=== PATIENT | female | born 1995 | race Caucasian/White ===

== ENCOUNTER 2018-07-03 08:50 | Outpatient (CLI) | payer BC ==
[2018-07-03 09:14] VITALS: BP 116/68; PULSE 91; RESP 16; TEMP 97
[2018-07-03 10:02] LABS: Appearance,Urine Clear (Clear); Bacteria,Urine Rare /hpf; Bilirubin,Urine Negative (Negative); Blood,Urine Negative (Negative); Color,Urine Yellow; Glucose,Urine (UA) 1+ (Negative); Ketones,Urine Negative (Negative); Leukocyte Esterase,Urine Large (Negative); Nitrite,Urine Negative (Negative); PH, Urine 6.5 (5.0-8.0); Protein,Urine Negative (Negative); RBC,Urine <1 /hpf (0-5); Specific Gravity,Urine 1.011 (1.001-1.035); Squamous Epithelial Cell,Urine 5 /hpf (0-4); Urobilinogen,Urine <2.0 mg/dL (<2.0); WBC,Urine 1 /hpf (0-5)
--- NOTE | 2018-07-07 09:57 | P.MSEPDOC ---
Presenting Problems - Arrival Data Date of Arrival on Unit: 07/03/18 Time of Arrival on Unit: 08:48 Mode of Transport: Ambulatory - Complaint OB-Reason for Admission/Chief Complaint: Rule Out PROM Comment: Patient states she had one gush of unknown fluid last night and then another this am. States with her last baby this happened and she didn't know she was ruptured so she wanted to come in and get checked out. Medical History - Information : 2 Para: 1 Term: 0 : 1 Abortions: Spontaneous or Elective: 0 Number of Living Children: 1 - Gestational Age Gestational Age by MEGA (wks/days): 28 Weeks and 6 Days Review of Systems - Review of Systems Constitutional: No problems Breast: No problems ENT: No problems Cardiovascular: No problems Respiratory: No problems Gastrointestinal: No problems Genitourinary: No problems Musculoskeletal: No problems Neurological: No problems Skin: No problems Vital Signs - Temperature Temperature: 97.0 F Temperature Source: Temporal Artery Scan - Pulse Right Radial Pulse Rate: 91 Pulse Assessment Method: Automatic Cuff - Respirations Respiratory Rate: 16 Oxygen Delivery Method: Room Air - Blood Pressure Right Arm Blood Pressure: 116/68 Blood Pressure Mean: 84 Blood Pressure Source: Automatic Cuff Medical Screen Scoring (Pre) - Cervical Exam Dilation: Exam Deferred Effacement: Exam Deferred Membranes: Intact - Uterine Contractions Frequency: N/A Duration: N/A Intensity: N/A - Maternal Vital Signs Maternal Temperature: N/A Maternal Blood Pressure: N/A Signs of Preeclampsia: N/A Maternal Respirations: N/A - Pain Assessment Pain Scale Used: Numeric (1 - 10) Pain Intensity: 0 - Maternal Trauma Maternal Trauma: N/A - Assessment Baseline FHR: 135 Heart Rate - NICHD Category: Category I (Normal) = 0 NST: Reactive Position: N/A Station: N/A - Total Score Total Score (Pre): 0 - Level of Risk Level of Risk: Low (0-5) Physician Notification (Pre) - Physician Notified Physician Notified Date: 07/03/18 Physician Notified Time: 09:34 Physician/Practitioner Notifed:: Dr. Rondon New Order Received: Yes - Notification Comment Comment: Collect and send an UA and call physician with report. at 1023 physician called with UA results, orders urine culture at this time, okay to discharge patient home at this time with instructions. Disposition - Disposition OB Disposition: Discharge to home Discharge Date: 07/03/18 Discharge Time: 10:25 I agree with the RN Medical Screening Exam: Yes Risk & Benefit of care provided described in d/c instruction: Yes Diagnosis: RELATED CONDITIONS, UNSPECIFIED, THIRD TRIMESTER
== END 2018-07-03 10:25 | disposition home or self-care (01) ==
LOC: FBPOP 08:50
PROVIDERS: ATTEND Obstetrics & Gynecology
DX: O26.93 Pregnancy related conditions, unspecified, third trimester (principal); Z3A.28 28 weeks gestation of pregnancy
CPT/HCPCS: 59025; 81001; 84112; 87086; 99213

== ENCOUNTER 2018-09-17 00:03 | Inpatient (IN) | payer BC ==
[2018-09-17] MEDS ORDERED: OXYTOCIN 10 UNIT/ML 1 ML VIAL IM PRN (02:49)
[2018-09-17] MEDS ORDERED: CARBOPROST TROMETHAMINE 250 MCG/ML 1 ML AMP IM PRN (02:49)
[2018-09-17] MEDS ORDERED: METHYLERGONOVINE 0.2 MG/ML 1 ML AMP IM PRN (02:49)
[2018-09-17] MEDS ORDERED: LIDOCAINE 0.5% (PF) 5 MG/ML (50 ML SDV) SQ PRN (02:49)
[2018-09-17] MEDS ORDERED: TERBUTALINE 1 MG/ML VIAL SQ PRN (02:49)
[2018-09-17 03:16] VITALS: BMI 25.4
[2018-09-17] MEDS: LACTATED RINGERS 1,000 ML IV SCH ×3 (03:26→23:28)
[2018-09-17 03:33] LABS: Basophils # (A) 0.1 k/uL (0-0.2); Basophils % (A) 1 %; Eosinophils # (A) 0.1 k/uL (0-0.7); Eosinophils % (A) 1 %; HCT 37.1 % (34.0-46.0); Lymphocytes # (A) 1.7 k/uL (1.0-4.8); Lymphocytes % (A) 17 %; MCH 26.7 pg (25.0-35.0); MCHC 32.4 g/dL (31.0-37.0); MCV 82.4 fL (80.0-100.0); Mean Platelet Volume 8.5; Monocytes # (A) 0.3 k/uL (0-1.0); Monocytes % (A) 3 %; Neutrophils # (A) 7.5 k/uL (1.3-7.7); Neutrophils % (A) 76 %; Platelet Count 273 k/uL (150-450); RBC 4.51 m/uL (3.80-5.40); RDW 15.7 % (11.5-15.5); WBC 9.9 k/uL (3.8-10.6)
[2018-09-17] MEDS ORDERED: OXYTOCIN 30 UNITS/500 ML NS 30 UNIT in SALINE 1 500ML.BAG IV SCH (06:30)
--- NOTE | 2018-09-17 10:07 | P.HPOB ---
History of Present Illness H&P Date: 09/17/18 Chief Complaint: Uterine contractions, decreased movement This is a 23-year-old white female 2 per 1001 EDC 09/19/2018 at 39-5/7 weeks' gestation. Patient presented early this morning with complaint of uterine contractions and decreased movement. She denied fluid leakage or vaginal bleeding. The diagnosis of early labor was made and the patient was a dmitted. Reactive NST was also appreciated. Obstetric history is significant for suspected LGA, 93rd percentile. Polyhydramnios, weekly nonstress test reactive. Blood type A-, antibody screen negative. Rubella status immune. Urine culture, hepatitis B surface antigen, gonorrhea and chlamydia cultures, HIV testing, group B strep cultures all negative. One-hour Glucola 107. Social history is significant for patient being single, she works at a [employer], she has never been a smoker and denies alcohol or drug use. Past surgical history wisdom teeth extracted in the past. Past medical history significant for abnormal Pap smear, history of chlamydia in the past. ALLERGIES none known. Current medications vitamins daily. Family history significant for diabetes mellitus. On exam this is a pleasant white female, 5 foot 2 inches, 139 pounds, blood pressure 113/66. Vital signs are stable and she is afebrile. General physical exam is within normal limits. Cervix at time of this dictation is 7-8 cm dilated, 90% effaced, -1 to -2 station, vertex presentation. Artificial amniorrhexis reveals clear fluid. heart rate in the 140s with frequent accelerations, consistent with reactive NST. Impression: 39-5/7 weeks intrauterine , history of LGA and polyhy dramnios, in labor. Plan: Continue close maternal and surveillance. Epidural has been reques roxanna and anesthesia department is aware and on route. Anticipate normal spontaneous vaginal delivery. Review of Systems Constitutional: Reports as per HPI Past Medical History Past Medical History: No Reported History History of Any Multi-Drug Resistant Organisms: None Reported Additional Past Surgical History / Comment(s): WISDOM TEETH 2013 Past Anesthesia/Blood Transfusion Reactions: No Reported Reaction Past Psychological History: No Psychological Hx Reported Smoking Status: Never smoker Past Alcohol Use History: None Reported Past Drug Use History: None Reported - Past Family History Mother Family Medical History: No Reported History Medications and Allergies Home Medications Medication Instructions Recorded Confirmed Type Pnv,Calcium 72/Iron/Folic Acid 1 tab PO DAILY 07/03/18 09/17/18 History [ Plus Tablet] Allergies Allergy/AdvReac Type Severity Reaction Status Date / Time No Known Allergies Allergy Verified 09/17/18 00:17 Exam Vital Signs Temp Pulse Resp BP Pulse Ox 09/17/18 02:49 97.8 F 83 16 113/66 98 09/17/18 00:18 97.8 F 83 16 113/66 98 Intake and Output 09/16/18 09/17/18 09/17/18 22:59 06:59 14:59 Other: # Voids 3 Weight 63.231 kg See dictation under HPI please Results Result Diagrams: 09/17/18 03:20 Abnormal Lab Results - Last 24 Hours (Table) 09/17/18 Range/Units 03:20 RDW 15.7 H (11.5-15.5) % Assessment and Plan Assessment: 39-5/7 weeks intrauterine , active labor. History of LGA and polyhydramnios. All signs otherwise reassuring. Plan: Epidural has been requested, anesthesia team on route. Continue close maternal and surveillance. Anticipate normal spontaneous vaginal delivery. Time with Patient: Less than 30
[2018-09-17] MEDS ORDERED: BENZOCAINE/MENTHOL SPRAY 1 GM/SPRAY AEROSOL TOPICAL PRN (10:42)
[2018-09-17] MEDS ORDERED: LANOLIN CREAM 5 GM TUBE TOPICAL PRN (10:42)
[2018-09-17] MEDS ORDERED: diphenhydrAMINE 25 MG CAP PO PRN (10:42)
[2018-09-17] MEDS ORDERED: HYDROCORTISONE 2.5% RECTAL CREAM 30 GM TUBE RECTAL PRN (10:42)
[2018-09-17] MEDS ORDERED: IBUPROFEN 600 MG TAB PO PRN (10:42)
[2018-09-17] MEDS ORDERED: WITCH HAZEL 1 EACH MED..PAD TOPICAL PRN (10:42)
[2018-09-17] MEDS ORDERED: diphenhydrAMINE 50 MG CAP PO PRN (10:42)
[2018-09-17] MEDS ORDERED: diphenhydrAMINE 50 MG/ML 1 ML VIAL IVP PRN ×2 (10:42)
[2018-09-17] MEDS ORDERED: ACETAMINOPHEN TAB 325 MG TAB PO PRN (10:42)
[2018-09-17] MEDS ORDERED: SIMETHICONE 80 MG CHEWABLE PO PRN (10:42)
[2018-09-17] MEDS ORDERED: ZOLPIDEM 5 MG TAB PO PRN (10:42)
--- NOTE | 2018-09-17 10:42 | P.PROBDLV ---
Vaginal Delivery Note - . Vaginal Delivery Note: This is a 23-year-old white female 2 para 1001 EDC 09/19/2018 at 39-5/7 weeks' gestation. Patient presented in active spontaneous labor from home. remarkable for blood type A-, rubella status immune, group B strep cultures negative. Please see admitting history and physical for details. Artificial amniorrhexis revealed clear fluid. Patient requested epidural, but was unable to achieve 1 secondary to rapid course of dilatation. She was judged to be completely dilated at 1010 hrs. and had a strong urge to push. heart tones were reassuring throughout the first and second stages. Perineal body was prepped and draped in usual sterile fashion. With excellent maternal expulsive efforts the head delivered occiput anterior and restituted accordingly. There was no nuchal cord noted. The oropharynx, nasopharynx, and external nares were all bulb suctioned on the perineal body. Patient was officially delivered a liveborn female infant at 1014 hrs. Umbilical cord was doubly clamped and ligated, she was handed to waiting nurses for evaluation where scores of 8 and 9 at one and 5 minutes respectively were given. Placenta delivered spontaneously, it was inspected and noted to be intact with trivascular cord at 1018 hours. Perineal body was then redraped. Uterus was massaged. Inspection of the cervix, vagina, perineum, periurethral, and perirectal areas revealed no lacerations and no defects. Fundus is firm and in the midline, symmetric and 18 week size upon completion of delivery. All sponge needle and instrument counts are correct. weight 8 lbs. 11 oz. or 3945 g. Patient and her are allowed to begin the bonding experience in the LDR.
[2018-09-17] MEDS ORDERED: OXYTOCIN 20 UNITS/1000 ML NS 1,000 ML IV SCH (10:45)
[2018-09-17] MEDS ORDERED: Rhogam IMMUNE GLOBULIN 1,500 UNIT/1 ML IM ONE (21:12)
[2018-09-17 23:26] VITALS: RESP 16
[2018-09-17] MEDS: SENNOSIDES-DOCUSATE SODIUM 1 EACH TAB PO SCH (23:28)
--- NOTE | 2018-09-18 09:00 | P.DS ---
Providers Date of admission: 09/17/18 01:56 Expected date of discharge: 09/18/18 Attending physician: German Rondon Primary care physician: Stated None - Discharge Diagnosis(es) (1) Normal spontaneous vaginal delivery Current Visit: Yes Status: Acute Hospital Course: The patient is a 23-year-old 2 para 1001 admitted at 39-5/7 weeks. She is admitted in early active labor with all signs reassuring. Her was uncomplicated though she did have mild polyhydramnios as well as suspected macrosomia with growth at the 93rd percentile in the third trimester. Group B strep status was negative. On labor and delivery, she had artificial rupture of membranes carried out demonstrating clear fluid and then made fairly rapid progress through the active phase of labor to complete. She pushed quickly to a normal spontaneous vaginal delivery of a viable 8 lbs. 11 oz. baby girl with Apgars of 8 at 1 minute and 9 at 5 minutes. Her course was unremarkable with vital signs remaining stable and her temperature was afebrile throughout. She was deemed stable for discharge on day #1 was discharged home to follow-up in the office in 6 weeks' time routinely. Discharge instructions included calling for any significantly increased bleeding or foul-smelling lochia, significantly increased fever abdominal pain, perineal complaints, breast complaints, or anything else that concerned her. She was additionally instructed to have nothing in the vagina for at least 6 weeks time to include intercourse. She understood her instructions and agrees to follow up as noted above. Discharge medications included continued vitamins as she has opted to breast-feed. She otherwise was to use [id number] a nalgesic pain medications as needed. Maternal blood type is A- and cord blood was sent for the evaluation for the necessity of RhoGAM prior to discharge. Rubella status is immune. Procedures: #1. Artificial rupture of membranes #2. Normal spontaneous vaginal delivery Patient Condition at Discharge: Good Plan - Discharge Summary New Discharge Prescriptions: No Action Pnv,Calcium 72/Iron/Folic Acid [ Plus Tablet] 1 tab PO DAILY Discharge Medication List Pnv,Calcium 72/Iron/Folic Acid [ Plus Tablet] 1 tab PO DAILY 07/03/18 [History] Follow up Appointment(s)/Referral(s): German Rondon MD [STAFF PHYSICIAN] - 6 Weeks Discharge Disposition: HOME SELF-CARE
[2018-09-18] MEDS: SENNOSIDES-DOCUSATE SODIUM 1 EACH TAB PO SCH (09:06)
[2018-09-18 09:21] VITALS: BP 107/72; PULSE 88; TEMP 97.7
== END 2018-09-18 12:15 | disposition home or self-care (01) | DRG 807 ==
LOC: FBPOP 00:03 → 4FBP 01:56
PROVIDERS: ADMIT Obstetrics & Gynecology; ATTEND Obstetrics & Gynecology
PROC: 10907ZC Drainage of Amniotic Fluid, Therapeutic from Products of Conception, Via Natural or Artificial Opening (ICD-10-PCS; principal; 2018-09-17)
PROC: 10E0XZZ Delivery of Products of Conception, External Approach (ICD-10-PCS; principal; 2018-09-17)
DX: O80 Encounter for full-term uncomplicated delivery (principal); Z37.0 Single live birth; Z3A.39 39 weeks gestation of pregnancy; Z83.3 Family history of diabetes mellitus; Z86.19 Personal history of other infectious and parasitic diseases
CPT/HCPCS: 59025; 85025; 85461; 86850; 86870; 86880; 86900; 86901; 86902; 99213

== ENCOUNTER 2019-12-22 08:16 | Emergency (ER) | payer BC, OTHER ==
[2019-12-22 08:37] VITALS: RESP 18; TEMP 98.6
[2019-12-22] MEDS ORDERED: SODIUM CHLORIDE 0.9% 1,000 ML IV ONE (08:39)
--- NOTE | 2019-12-22 09:13 | ED ---
General Adult HPI - General Chief complaint: Vaginal Bleeding Stated complaint: Poss miscarriage Time Seen by Provider: 12/22/19 08:38 Source: patient, RN notes reviewed Mode of arrival: wheelchair Limitations: no limitations - History of Present Illness Initial comments: Patient is a 24-year-old female approximately 10 weeks who presents to the emergency department for a chief complaint of vaginal bleeding. Patient reports she thinks she is having a miscarriage. She reports this bleeding started around 9:30 last night. States it was initially heavy and has slowed down. However patient has been syncopal twice this morning. She reports she stood up to walk out of the bathroom and felt lightheaded and passed out. Patient denies any significant abdominal pain. Patient called Dr. mcelroy who is on-call for her LEGAL TECHNICIAN Dr. Rondon who recommended she come into the emergency room.Patient has no other complaints at this time including shortness of breath, chest pain, abdominal pain, nausea or vomiting, headache, or visual changes. - Related Data Home Medications Medication Instructions Recorded Confirmed Pnv,Calcium 72/Iron/Folic Acid 1 tab PO DAILY 07/03/18 09/17/18 [ Plus Tablet] Allergies Allergy/AdvReac Type Severity Reaction Status Date / Time No Known Allergies Allergy Verified 12/22/19 08:37 Review of Systems ROS Statement: Those systems with pertinent positive or pertinent negative responses have been documented in the HPI. ROS Other: All systems not noted in ROS Statement are negative. Past Medical History Past Medical History: No Reported History History of Any Multi-Drug Resistant Organisms: None Reported Past Surgical History: No Surgical Hx Reported Additional Past Surgical History / Comment(s): WISDOM TEETH 2014 Past Anesthesia/Blood Transfusion Reactions: No Reported Reaction Past Psychological History: No Psychological Hx Reported Smoking Status: Never smoker Past Alcohol Use History: None Reported Past Drug Use History: None Reported - Past Family History Mother Family Medical History: No Reported History General Exam Limitations: no limitations General appearance: alert, in no apparent distress Head exam: Present: atraumatic, normocephalic, normal inspection Eye exam: Present: normal appearance, PERRL, EOMI. Absent: scleral icterus, conjunctival injection, periorbital swelling ENT exam: Present: normal exam, mucous membranes moist Neck exam: Present: normal inspection, full ROM. Absent: tenderness, meningismus, lymphadenopathy Respiratory exam: Present: normal lung sounds bilaterally. Absent: respiratory distress, wheezes, rales, rhonchi, stridor Cardiovascular Exam: Present: regular rate, normal rhythm, normal heart sounds. Absent: systolic murmur, diastolic murmur, rubs, gallop, clicks GI/Abdominal exam: Present: soft, normal bowel sounds. Absent: distended, tenderness, guarding, rebound, rigid External exam: Present: normal external exam. Absent: erythema, swelling, lesions, lacerations, ecchymosis Speculum exam: Present: vaginal bleeding (Clotting noted from the cervix, and no obvious tissue in the cervix.). Absent: normal speculum exam, erythema, vaginal discharge, cervical discharge, foreign body, tissue, laceration By manual exam: Present: normal by manual exam. Absent: cervical motion tenderness, adnexal tenderness, adnexal mass, uterine enlargement, uterine tenderness Course Vital Signs 12/22/19 12/22/19 08:32 09:37 Temperature 98.6 F Pulse Rate 113 H 86 Respiratory 18 18 Rate Blood Pressure 87/55 96/59 O2 Sat by Pulse 98 100 Oximetry Medical Decision Making - Medical Decision Making Vitals are stable. Patient initially tachycardic at 113. Blood pressure borderline however was repeated immediately and was 96 systolic. Pelvic exam was performed which did show clotting however bleeding has slowed significantly. No abdominal tenderness. CBC does show leukocytosis which is likely reactive. CMP unremarkable. HCG is elevated at 12,000. ultrasound was performed which showed no IUP, thickened endometrium. Case was discussed with Dr. Mcelroy who is on-call for patient's LEGAL TECHNICIAN Dr. Rondon. Recommends giving RhoGAM and giving another liter of fluid. As long as patient stays medically stable to discharge home with follow-up to Dr. Serrano with pelvic rest. Patient will call Tuesday for a follow-up this next week. She will continue prenatals per Dr. Mcelroy. - Lab Data Result diagrams: 12/22/19 09:16 12/22/19 09:16 Lab Results 12/22/19 12/22/19 12/22/19 Range/Units 09:16 09:16 09:16 WBC 15.5 H (3.8-10.6) k/uL RBC 4.32 (3.80-5.40) m/uL Hgb 12.3 (11.4-16.0) gm/dL Hct 36.9 (34.0-46.0) % MCV 85.6 (80.0-100.0) fL MCH 28.5 (25.0-35.0) pg MCHC 33.3 (31.0-37.0) g/dL RDW 13.2 (11.5-15.5) % Plt Count 248 (150-450) k/uL Neutrophils % 91 % Lymphocytes % 5 % Monocytes % 2 % Eosinophils % 1 % Basophils % 0 % Neutrophils # 14.1 H (1.3-7.7) k/uL Lymphocytes # 0.8 L (1.0-4.8) k/uL Monocytes # 0.4 (0-1.0) k/uL Eosinophils # 0.1 (0-0.7) k/uL Basophils # 0.1 (0-0.2) k/uL Sodium 135 L (137-145) mmol/L Potassium 4.7 (3.5-5.1) mmol/L Chloride 103 (98-107) mmol/L Carbon Dioxide 22 (22-30) mmol/L Anion Gap 10 mmol/L BUN 11 (7-17) mg/dL Creatinine 0.66 (0.52-1.04) mg/dL Est GFR (CKD-EPI)AfAm >90 (>60 ml/min/1.73 sqM) Est GFR (CKD-EPI)NonAf >90 (>60 ml/min/1.73 sqM) Glucose 135 H (74-99) mg/dL Calcium 9.8 (8.4-10.2) mg/dL Total Bilirubin 0.5 (0.2-1.3) mg/dL AST 58 H (14-36) U/L ALT 51 H (4-34) U/L Alkaline Phosphatase 62 (38-126) U/L Total Protein 7.3 (6.3-8.2) g/dL Albumin 4.5 (3.5-5.0) g/dL HCG, Quant 99636.0 mIU/mL Blood Type A Negative Blood Type Recheck A Neg Bld Type Recheck Status No Antibody Screen NEGATIVE Spec Expiration Date 12/25/2019 - 2315 Disposition Clinical Impression: Vaginal bleeding, Elevated serum hCG Narrative: Suspected miscarriage Disposition: ADMITTED IP TO THIS HOSP Condition: Fair Instructions (If sedation given, give patient instructions): Miscarriage (ED) Additional Instructions: Please maintain pelvic rest without anything in the vagina including intercourse or tampons. Call Dr. Rondon on Tuesday for an appointment this week. Take prenatals daily. If you're having worsening symptoms or worsening vaginal bleeding return to the emergency room immediately. Is patient prescribed a controlled substance at d/c from ED?: No Referrals: German Rondon MD [STAFF PHYSICIAN] - 1-2 days Time of Disposition: 10:20
[2019-12-22 09:27] LABS: Basophils # (A) 0.1 k/uL (0-0.2); Basophils % (A) 0 %; Eosinophils # (A) 0.1 k/uL (0-0.7); Eosinophils % (A) 1 %; HCT 36.9 % (34.0-46.0); HGB 12.3 gm/dL (11.4-16.0); Lymphocytes # (A) 0.8 k/uL (1.0-4.8); Lymphocytes % (A) 5 %; MCH 28.5 pg (25.0-35.0); MCHC 33.3 g/dL (31.0-37.0); MCV 85.6 fL (80.0-100.0); Mean Platelet Volume 8.2; Monocytes # (A) 0.4 k/uL (0-1.0); Monocytes % (A) 2 %; Neutrophils # (A) 14.1 k/uL (1.3-7.7); Neutrophils % (A) 91 %; Platelet Count 248 k/uL (150-450); RBC 4.32 m/uL (3.80-5.40); RDW 13.2 % (11.5-15.5); WBC 15.5 k/uL (3.8-10.6)
[2019-12-22 09:34] LABS: ALT 51 U/L (4-34); AST 58 U/L (14-36); African American GFR (CKD) >90 (>60 ml/min/1.73 sqM); Albumin 4.5 g/dL (3.5-5.0); Alkaline Phosphatase 62 U/L (38-126); Anion Gap 10 mmol/L; Blood Urea Nitrogen 11 mg/dL (7-17); Calcium 9.8 mg/dL (8.4-10.2); Carbon Dioxide 22 mmol/L (22-30); Chloride 103 mmol/L (98-107); Glucose 135 mg/dL (74-99); Non-African American GFR(CKD) >90 (>60 ml/min/1.73 sqM); Potassium 4.7 mmol/L (3.5-5.1); Sodium 135 mmol/L (137-145); Total Bilirubin 0.5 mg/dL (0.2-1.3); Total Protein 7.3 g/dL (6.3-8.2)
--- NOTE | 2019-12-22 09:57 | US ---
EXAMINATION TYPE: Transabdominal DATE OF EXAM: 12/22/2019 9:39 AM COMPARISON: NONE CLINICAL HISTORY: pain. bleeding with , patient states she has been passing large clots sinc e last night. EXAM PERFORMED: Transabdominal (TA) EXAM MEASUREMENTS: GESTATIONAL AGE / DATING Physician Established: Not yet established Dates by LMP: 10/01/2019 (11 weeks/5 days) EDC: 07/07/2020 Dates by First Scan: No previous this is first scan Dates by Current Scan for: No IUP seen at this time MATERNAL ANATOMY Uterus: 11.4 x 6.6 x 8.9 cm Right Ovary: 2.9 x 2.1 x 3.6 cm Left Ovary: 2.7 x 1.4 x 2.5 cm Post CDS / Adnexa: wnl Presence of free fluid: none GESTATION / SURVEY Date of LMP: Patient guessed at 10/01/2019, but thought she was about 10 weeks. Beta HcG (if available): not available at time of exam No gestational sac seen in uterus. Endometrium is thickened and has some vascularity. Transvaginal not performed as patient did not really want and technologist did not feel it would add any additional information. IMPRESSION: Endometrium is thickened. No intrauterine seen. If the patient is beta hCG positive Differe ntial diagnosis would include a normal too early to detect. Ectopic or missed abo rtion, molar not excluded correlate with serial beta hCG and pelvic ultrasound as clinicall y warranted.
[2019-12-22] MEDS ORDERED: SODIUM CHLORIDE 0.9% 1,000 ML IV STA (10:03)
[2019-12-22] MEDS ORDERED: Rhogam IMMUNE GLOBULIN 1,500 UNIT/1 ML IM STA (10:06)
[2019-12-22 11:48] VITALS: BP 100/56
[2019-12-22 11:55] LABS: Appearance,Urine Clear (Clear); Bilirubin,Urine Negative (Negative); Blood,Urine Moderate (Negative); Color,Urine Yellow; Glucose,Urine (UA) Negative (Negative); Ketones,Urine Trace (Negative); Leukocyte Esterase,Urine Trace (Negative); Mucus,Urine Many /hpf; Nitrite,Urine Negative (Negative); Protein,Urine Trace (Negative); RBC,Urine 97 /hpf (0-5); Specific Gravity,Urine 1.031 (1.001-1.035); Squamous Epithelial Cell,Urine 1 /hpf (0-4); Urobilinogen,Urine <2.0 mg/dL (<2.0); WBC,Urine 5 /hpf (0-5)
[2019-12-22 12:29] VITALS: PULSE 92
== END 2019-12-22 12:27 | disposition other institution (70) ==
LOC: EC 08:16
DX: O46.91 Antepartum hemorrhage, unspecified, first trimester (principal); O99.111 Other diseases of the blood and blood-forming organs and certain disorders involving the immune mechanism complicating pregnancy, first trimester; D72.829 Elevated white blood cell count, unspecified; O99.89 Other specified diseases and conditions complicating pregnancy, childbirth and the puerperium; R00.0 Tachycardia, unspecified; R89.1 Abnormal level of hormones in specimens from other organs, systems and tissues; Z3A.10 10 weeks gestation of pregnancy
CPT/HCPCS: 36415; 86900; 86901; 80053; 85025; 86850; 81001; 84702; 76801; 99285; 96360; 96372; 96361; J2791

== ENCOUNTER 2021-01-21 06:15 | Inpatient (IN) | payer BC, OTHER ==
[2021-01-21] MEDS ORDERED: LIDOCAINE 0.5% (PF) 5 MG/ML (50 ML SDV) SQ PRN (06:55)
[2021-01-21] MEDS ORDERED: TERBUTALINE 1 MG/ML VIAL SQ PRN (06:55)
[2021-01-21] MEDS ORDERED: METHYLERGONOVINE 0.2 MG/ML 1 ML AMP IM PRN (06:55)
[2021-01-21] MEDS ORDERED: OXYTOCIN 10 UNIT/ML 1 ML VIAL IM PRN (06:55)
[2021-01-21] MEDS ORDERED: CARBOPROST TROMETHAMINE 250 MCG/ML 1 ML AMP IM PRN (06:55)
[2021-01-21] MEDS ORDERED: OXYTOCIN 30 UNITS/500 ML NS 30 UNIT in SALINE 1 500ML.BAG IV SCH ×2 (07:00→11:45)
[2021-01-21 07:03] VITALS: RESP 16
[2021-01-21] MEDS: LACTATED RINGERS 1,000 ML IV SCH ×2 (07:37→09:29)
[2021-01-21 08:01] LABS: Basophils % (A) 0 %; Eosinophils # (A) 0.1 k/uL (0-0.7); Eosinophils % (A) 1 %; HCT 36.4 % (34.0-46.0); HGB 11.9 gm/dL (11.4-16.0); Lymphocytes # (A) 1.6 k/uL (1.0-4.8); Lymphocytes % (A) 23 %; MCH 24.7 pg (25.0-35.0); MCHC 32.8 g/dL (31.0-37.0); MCV 75.4 fL (80.0-100.0); Mean Platelet Volume 7.9; Microcytosis Slight; Monocytes # (A) 0.4 k/uL (0-1.0); Monocytes % (A) 6 %; Neutrophils # (A) 4.6 k/uL (1.3-7.7); Neutrophils % (A) 67 %; Platelet Count 186 k/uL (150-450); Poikilocytosis Slight; RBC 4.83 m/uL (3.80-5.40); RDW 14.9 % (11.5-15.5); WBC 6.8 k/uL (3.8-10.6)
[2021-01-21] MEDS ORDERED: BUTORPHANOL 1 MG/ML 1 ML VIAL IV PRN (08:50)
--- NOTE | 2021-01-21 08:56 | P.HPOB ---
History of Present Illness H&P Date: 01/21/21 Chief Complaint: 37+ weeks, polyhydramnios, significantly maternal discomfort, macroso the patient is a 25-year-old 3 para 1102 admitted at 37+ weeks as established by seven-week ultrasound. She is admitted with the diagnosis of significant polyhydramnios causing significant maternal discomfort. She has had testing which is been reassuring since approximate 32 weeks. She additionally is known to have a macrosomic infant greater than 99th percentile, more recently approximately 97th percentile of. She also is Rh- and received RhoGAM at 28 weeks. Her has been otherwise uncomplicated and group B strep status is negative. On labor and delivery, all signs reassuring with a category 1 heart rate tracing. Obstetrical history: 3 para 1102with current statistics listed in history of present illness. EDC of 02/06/2021 was established by seven-week ultrasound. Laboratory workup demonstrates a blood type of A- with a negative antibody screen. Rubella status is immune. The remainder of laboratory workups within normal limits. One hour Glucola was normal and group B strep status is negative. Gynecologic history: Unremarkable with no history of any infections to include STDs. Review of Systems review of systems is confined to history of present illness. Past Medical History Past Medical History: No Reported History History of Any Multi-Drug Resistant Organisms: None Reported Past Surgical History: No Surgical Hx Reported Additional Past Surgical History / Comment(s): WISDOM TEETH 2014 Past Anesthesia/Blood Transfusion Reactions: No Reported Reaction Past Psychological History: No Psychological Hx Reported Smoking Status: Never smoker Past Alcohol Use History: None Reported Past Drug Use History: None Reported - Past Family History Mother Family Medical History: No Reported History Medications and Allergies Home Medications Medication Instructions Recorded Confirmed Type Pnv,Calcium 72/Iron/Folic Acid 1 tab PO DAILY 07/03/18 01/21/21 History [ Plus Tablet] Allergies Allergy/AdvReac Type Severity Reaction Status Date / Time No Known Allergies Allergy Verified 01/21/21 06:55 Exam Vital Signs Temp Pulse Resp BP 01/21/21 06:58 98.3 F 85 16 128/60 Intake and Output 01/20/21 01/21/21 01/21/21 22:59 06:59 14:59 Other: Weight 67.132 kg in general, this is a well-developed, well-nourished white female in no acute distress. Her heart has a regular rhythm and rate without murmur. Her lungs are clear to auscultation bilaterally in all ochoa. Her abdomen is gravid, nondistended, has normal active bowel sounds, soft, nontender, and without any palpable masses aside from uterine fundus. Her extremities are without any cyanosis, clubbing, or edema and are nontender to palpation bilaterally. Digital cervical examination on straights her cervix to approximate 4 synovators dilated, 60% effaced, the vertex in presentation at -2-3 station. Artificial rupture of membranes is carried out demonstrating significant amounts of clear fluid. This was slowly let out in order to allow the head to settle into the pelvis. Results Result Diagrams: 01/21/21 07:14 Abnormal Lab Results - Last 24 Hours (Table) 01/21/21 Range/Units 07:14 MCV 75.4 L (80.0-100.0) fL MCH 24.7 L (25.0-35.0) pg Assessment and Plan (1) Term Current Visit: Yes Status: Acute Code(s): Z34.90 - ENCNTR FOR SUPRVSN OF NORMAL , UNSP, UNSP TRIMESTER SNOMED Code(s): 56747316 (2) Polyhydramnios Current Visit: Yes Status: Acute Code(s): O40.9XX0 - POLYHYDRAMNIOS, UNSP TRIMESTER, NOT APPLICABLE OR UNSP SNOMED Code(s): 56719747 (3) macrosomia in Current Visit: Yes Status: Acute Code(s): O36.60X0 - MATERNAL CARE FOR EXCESS GROWTH, UNSP TRIMESTER, UNSP SNOMED Code(s): 37082858 Plan: the patient is admitted for Pitocin induction of labor. Pitocin has been started and she has undergone artificial rupture of membranes. She will have close maternal and surveillance and expectant management will be practiced. She is a good candidate for either IV or epidural analgesia, whichever she may choose.
[2021-01-21] MEDS ORDERED: ROPIVACAINE 5MG/ML 20ML VIAL ONE (09:08)
[2021-01-21] MEDS ORDERED: SODIUM CHLORIDE 0.9% 100 ML BAG ONE (09:08)
[2021-01-21] MEDS ORDERED: fentaNYL (PF) 50 MCG/ML 5 ML AMP ONE (09:08)
[2021-01-21] MEDS ORDERED: ACETAMINOPHEN TAB 325 MG TAB PO PRN (11:41)
[2021-01-21] MEDS ORDERED: HYDROcodone/APAP 5-325MG 1 EACH TAB PO PRN (11:41)
[2021-01-21] MEDS ORDERED: diphenhydrAMINE 50 MG CAP PO PRN (11:41)
[2021-01-21] MEDS ORDERED: LANOLIN CREAM 5 GM TUBE TOPICAL PRN (11:41)
[2021-01-21] MEDS ORDERED: ZOLPIDEM 5 MG TAB PO PRN (11:41)
[2021-01-21] MEDS ORDERED: HYDROCORTISONE 2.5% RECTAL CREAM 30 GM TUBE RECTAL PRN (11:41)
[2021-01-21] MEDS ORDERED: BENZOCAINE/MENTHOL SPRAY 1 GM/SPRAY AEROSOL TOPICAL PRN (11:41)
[2021-01-21] MEDS ORDERED: diphenhydrAMINE 50 MG/ML 1 ML VIAL IVP PRN ×2 (11:41)
[2021-01-21] MEDS ORDERED: HYDROcodone/APAP 7.5-325MG 1 EACH TAB PO PRN (11:41)
[2021-01-21] MEDS ORDERED: diphenhydrAMINE 25 MG CAP PO PRN (11:41)
[2021-01-21] MEDS ORDERED: SIMETHICONE 80 MG CHEWABLE PO PRN (11:41)
--- NOTE | 2021-01-21 11:44 | P.PROBDLV ---
Vaginal Delivery Note - . Vaginal Delivery Note: the patient is a 25-year-old [id number] admitted at 37-5/7 weeks by good dating parameters. She is admitted for induction of labor secondary to significant polyhydramnios and significant maternal discomfort as a result. Her testing has been reassuring. She also suspected to have a large for gestational age baby growing at the 96th percentile. On labor and delivery, all signs reassuring with a category 1 heart rate tracing. She had Pitocin augmentation started followed by artificial rupture of membranes for a significant amount of clear fluid. She had an epidural catheter placed for analgesia and progressed fairly rapidly through the active phase of labor to complete. She pushed over the course of approximately 20 minutes to a normal spontaneous vaginal delivery of a viable 8 lbs. 8 oz. baby boy with Apgars of 9 at 1 minute and 9 at 5 minutes delivered in the right occiput transverse position. The placenta was delivered spontaneously, intact, and grossly normal with a grossly normal, centrally inserted three-vessel cord. There were no lacerations of the perineum, vagina, or cervix. Estimated blood loss for the case approximate 100 mL. All sponge, instrument, and needle counts were correct. Both mother and are resting comfortably in recovery.
[2021-01-21] MEDS: IBUPROFEN 600 MG TAB PO PRN (11:57)
[2021-01-21] MEDS: SENNOSIDES-DOCUSATE SODIUM 1 EACH TAB PO SCH (20:33)
[2021-01-22 08:03] LABS: Basophils % (A) 0 %; Eosinophils # (A) 0.1 k/uL (0-0.7); Eosinophils % (A) 1 %; HCT 36.2 % (34.0-46.0); HGB 11.1 gm/dL (11.4-16.0); Hypochromasia Moderate; Lymphocytes # (A) 1.6 k/uL (1.0-4.8); Lymphocytes % (A) 16 %; MCH 24.1 pg (25.0-35.0); MCHC 30.6 g/dL (31.0-37.0); MCV 78.6 fL (80.0-100.0); Mean Platelet Volume 9.5; Monocytes # (A) 0.4 k/uL (0-1.0); Monocytes % (A) 4 %; Neutrophils # (A) 7.9 k/uL (1.3-7.7); Neutrophils % (A) 77 %; Platelet Count 192 k/uL (150-450); RDW 14.8 % (11.5-15.5); WBC 10.3 k/uL (3.8-10.6)
[2021-01-22] MEDS: SENNOSIDES-DOCUSATE SODIUM 1 EACH TAB PO SCH (08:11)
[2021-01-22] MEDS: IBUPROFEN 600 MG TAB PO PRN (08:11)
--- NOTE | 2021-01-22 09:00 | P.DS ---
Providers Date of admission: 01/21/21 06:45 Expected date of discharge: 01/22/21 Attending physician: German Rondon Primary care physician: Stated None - Discharge Diagnosis(es) (1) Term Current Visit: Yes Status: Acute (2) Polyhydramnios Current Visit: Yes Status: Acute (3) macrosomia in Current Visit: Yes Status: Acute (4) Normal spontaneous vaginal delivery Current Visit: Yes Status: Acute Hospital Course: the patient is a 25-year-old 3 para 1102 admitted at 37-5/7 weeks by good dating parameters. She is admitted for induction secondary to significant polyhydramnios as well as a large for gestational age fetus. This caused significant and severe maternal discomfort. testing had been reassuri ng since 32 weeks. She is additionally known to be Rh- and received RhoGAM at 28 weeks. Group E strep status is negative. On labor and delivery, all signs reassuring with category 1 heart rate tracing. She had Pitocin augmentation started and underwent artificial rupture of membranes for significant amounts of clear fluid. She had an epidural catheter placed for analgesia and then made rapid progress through the active phase to complete. She pushed fairly quickly to a normal spontaneous vaginal delivery of a viable 8 lbs. 8 oz. baby boy with Apgars of 9 at 1 minute and 9 at 5 minutes. Her course was unremarkable with vital signs being stable and attempt was afebrile throughout. She was deemed stable for discharge on day 1 was discharged home to follow-up in the office in 6 weeks' time routinely. Discharge instructions included calling for any significantly increased bleeding or foul-smelling lochia, significantly increased fever abdominal pain, perineal complaints, breast complaints, or anything else that concerned her. She was additionally instructed to have nothing in the vagina for at least 6 weeks time to include intercourse. She understood her instructions and agrees to follow up as noted above. Discharge medications included continued vitamins as she has opted to breast-feed. She was otherwise to use [id number] analg esic pain medications as needed. Maternal blood type is A- and cord blood was sent for evaluation for the necessity of RhoGAM prior to discharge. Rubella status is immune. Procedures: #1. Pitocin induction and 2. Artificial rupture of membranes #3. Epidural analgesia #4. Normal spontaneous vaginal delivery Patient Condition at Discharge: Stable Plan - Discharge Summary New Discharge Prescriptions: No Action Pnv,Calcium 72/Iron/Folic Acid [ Plus Tablet] 1 tab PO DAILY Discharge Medication List Pnv,Calcium 72/Iron/Folic Acid [ Plus Tablet] 1 tab PO DAILY 07/03/18 [History] Follow up Appointment(s)/Referral(s): German Rondon MD [STAFF PHYSICIAN] - 6 Weeks Discharge Disposition: HOME SELF-CARE
[2021-01-22 09:22] VITALS: BP 121/73; PULSE 69; TEMP 97.9
== END 2021-01-22 11:45 | disposition home or self-care (01) | DRG 807 ==
LOC: 4FBP 06:45
PROVIDERS: ADMIT Obstetrics & Gynecology; ATTEND Obstetrics & Gynecology
PROC: 10E0XZZ Delivery of Products of Conception, External Approach (ICD-10-PCS; principal; 2021-01-21)
PROC: 10907ZC Drainage of Amniotic Fluid, Therapeutic from Products of Conception, Via Natural or Artificial Opening (ICD-10-PCS; 2021-01-21)
PROC: 3E033VJ Introduction of Other Hormone into Peripheral Vein, Percutaneous Approach (ICD-10-PCS; 2021-01-21)
DX: O36.63X0 Maternal care for excessive fetal growth, third trimester, not applicable or unspecified (principal); Z37.0 Single live birth; O40.3XX0 Polyhydramnios, third trimester, not applicable or unspecified; O26.893 Other specified pregnancy related conditions, third trimester; Z3A.37 37 weeks gestation of pregnancy; Z67.11 Type A blood, Rh negative
CPT/HCPCS: 85025; 86850; 86900; 86901